=== PATIENT | male | born 1965 | race Caucasian/White ===

== ENCOUNTER 2017-05-16 05:31 | Day surgery (SDC) | payer OTHER ==
[~2017-05-16 05:31] MED LIST: CEFAZOLIN 2 GM/50 ML (PMX) 50 ML IVPB; D5W-0.45 NACL + KCL 20 MEQ 1,000 ML IV
[2017-05-16] MEDS ORDERED: BUPIVACAINE 0.25% (MPF) 30 ML INJ (06:53)
[2017-05-16] MEDS ORDERED: CEFAZOLIN 1 GM INJ (07:00)
[2017-05-16 07:24] LABS: INR 1.13; PROTIME 14.7 Sec (11.9-14.9); PT RATIO 1.1
[2017-05-16 07:25] LABS: PARTIAL THROMBOPLASTIN TIME 32.1 Sec (25.0-35.0)
[2017-05-16] MEDS ORDERED: MIDAZOLAM 1 MG/ML 2 ML INJ (07:39)
[2017-05-16] MEDS: BUPIVACAINE 0.25% (MPF) 30 ML INJ INJ (08:19)
[2017-05-16] MEDS: POLYMYXIN/BACITRACIN 1L IRRIG (08:19)
[2017-05-16] MEDS ORDERED: METOCLOPRAMIDE 10 MG INJ (08:57)
[2017-05-16] MEDS ORDERED: ONDANSETRON 4 MG INJ (08:57)
[2017-05-16] MEDS ORDERED: NEOSTIGMINE 3 MG/3 ML SYRINGE (09:07)
[2017-05-16] MEDS ORDERED: GLYCOPYRROLATE 1 MG INJ (09:07)
[2017-05-16] MEDS ORDERED: LIDOCAINE 2% (SDV) 5 ML INJ (09:07)
[2017-05-16] MEDS ORDERED: ROCURONIUM 50 MG INJ (09:07)
[2017-05-16] MEDS ORDERED: PROPOFOL 20 ML (09:07)
[2017-05-16] MEDS ORDERED: hydrALAzine 20 MG INJ IV (10:00)
[2017-05-16] MEDS ORDERED: BISACODYL 10 MG SUPP PR (10:00)
[2017-05-16] MEDS ORDERED: FENTAnyl 50 MCG/ML VIAL IV (10:00)
[2017-05-16] MEDS ORDERED: HYDROCODONE/APAP (5/325) TAB PO (10:00)
[2017-05-16] MEDS ORDERED: MEPERIDINE 25 MG INJ IV (10:00)
[2017-05-16] MEDS ORDERED: ONDANSETRON 4 MG INJ IV (10:00)
[2017-05-16] MEDS ORDERED: DIPHENHYDRAMINE 50 MG INJ IV (10:00)
[2017-05-16] MEDS ORDERED: ALBUTEROL 0.083% (NEB) 2.5 MG/3 ML AMP HHN (10:00)
[2017-05-16] MEDS ORDERED: DOCUSATE SODIUM 100 MG CAP PO (10:00)
[2017-05-16] MEDS ORDERED: HYDROmorphONE (0.2 MG/ML) 10ML SYG IV ×2 (10:00)
[2017-05-16] MEDS ORDERED: LABETALOL HCL 20MG INJ IV (10:00)
[2017-05-16] MEDS: HYDROCODONE/APAP (5/325) TAB PO (10:24)
== END 2017-05-16 11:57 | disposition home or self-care (01) ==
LOC: SDS 05:31
DX: K42.9 Umbilical hernia without obstruction or gangrene (principal); I10 Essential (primary) hypertension; F32.9 Major depressive disorder, single episode, unspecified
CPT/HCPCS: 49587; 85610; 85730; 86850; 86900; 86901; 88302

== ENCOUNTER 2017-05-29 14:04 | Outpatient (CLI) | payer OTHER | END 2017-05-29 17:00 | disposition home or self-care (01) | LOC: HPC 14:04 | DX: K80.20 Calculus of gallbladder without cholecystitis without obstruction (principal); I86.1 Scrotal varices | CPT/HCPCS: Z7500 ==